=== PATIENT | female | born 1990 | race Two or more races ===

== ENCOUNTER 2021-03-17 16:57 | Emergency (ER) | payer OTHER ==
[~2021-03-17] VITALS: Ht 162.6 cm; Wt 49.9 kg
[2021-03-17] MEDS ORDERED: SPIRONOLACTONE1 GM MC (17:54)
== END 2021-03-17 21:46 | disposition home or self-care (01) ==
LOC: ER 16:57
DX: S06.0X9A Concussion with loss of consciousness of unspecified duration, initial encounter (principal); S00.83XA Contusion of other part of head, initial encounter; W18.09XA Striking against other object with subsequent fall, initial encounter; Y93.89 Activity, other specified; Y92.018 Other place in single-family (private) house as the place of occurrence of the external cause; Y99.8 Other external cause status